=== PATIENT | female | born 1965 | race Caucasian/White ===

== ENCOUNTER 2022-04-27 12:24 | Emergency (ER) | payer OTHER ==
[~2022-04-27] VITALS: Ht 157.5 cm; Wt 96.2 kg
[2022-04-27] MEDS ORDERED: ZESTRIL20 MG PO (12:50)
[2022-04-27] MEDS ORDERED: ADULT LOW DOSE81 M1 PO (12:50)
[2022-04-27] MEDS ORDERED: TOPROL XL25 M1 PO (12:50)
[2022-04-27] MEDS ORDERED: ATORVASTATIN CA10 MG PO (12:51)
== END 2022-04-27 15:15 | disposition home or self-care (01) ==
LOC: ER 12:24
DX: N39.0 Urinary tract infection, site not specified (principal)